=== PATIENT | male | born 1970 ===

== ENCOUNTER 2024-08-15 06:50 | Day surgery (SDC) | payer OTHER ==
[2024-08-15] MEDS ORDERED: CEFAZOLIN SODIUM 1,000 MG VIAL ONE (08:44)
[2024-08-15] MEDS ORDERED: TRAMADOL HCL50 MG PO (09:36)
[2024-08-15] MEDS ORDERED: TYLENOL ARTHRI650 MG PO (09:36)
[2024-08-15] MEDS ORDERED: NEURONTIN300 MG PO (09:36)
[2024-08-15] MEDS ORDERED: KETO10TA2 PO (09:36)
[2024-08-15] MEDS ORDERED: MIRALAX17 GM PO (09:36)
[2024-08-15] MEDS ORDERED: BUPIVACAINE HCL/MPF 0.5% 30ML VIAL ONE ×2 (09:40→11:31)
[2024-08-15] MEDS ORDERED: KETOROLAC TROMETHAMINE 30 MG VIAL ONE (12:17)
[2024-08-15] MEDS ORDERED: SUGAMMADEX SODIUM 200 MG/2 ML VIAL IV ONE (12:28)
[2024-08-15] MEDS ORDERED: MORPHINE SULFATE 4 MG/ML VIAL IV ONE (14:05)
== END 2024-08-15 16:25 | disposition home or self-care (01) ==
LOC: CIR.AMB 06:50
PROVIDERS: ATTEND Surgery
DX: K43.0 Incisional hernia with obstruction, without gangrene (principal); K43.6 Other and unspecified ventral hernia with obstruction, without gangrene; S37.20XA Unspecified injury of bladder, initial encounter
CPT/HCPCS: 49594; 51860; C1781